=== PATIENT | male | born 1970 | race Caucasian/White ===

== ENCOUNTER → 2023-05-16 15:33 | Outpatient (CLI) | payer OTHER, SELFPAY ==
--- NOTE | 2023-05-16 | DI.US.S_ITS ---
PROCEDURE: US EXTREMITY NONVASC UPPER LT INDICATIONS: SOFT TISSUE MASS LEFT ARM TECHNIQUE: Real-time scanning was performed of the left acromioclavicular fossa , with image documentation. COMPARISON: [facility], , EXTREMITY NON-VASCULAR LTD, 01/29/2017, 16:26. FINDINGS: Targeted ultrasound of the left acromioclavicular fossa demonstrates a part cystic and solid mass without significant internal vascularity. This measures 3.0 x 2.8 x 2.2 cm, previously 1.5 x 1.5 x 1.1 cm. IMPRESSION: Interval growth of the part cystic and solid mass in the left acromioclavicular fossa. Slow interval growth favors a benign entity, but tissue sampling should be considered to exclude malignancy. Alternatively, MRI with contrast could be considered to evaluate for enhancement or other worrisome features. Dictated by: Nicholas Al M.D. on 05/16/2023 at 16:58 Approved by: Nicholas Al M.D. on 05/16/2023 at 17:00
== END ==
LOC: US 15:34
PROVIDERS: PCP Internal Medicine; Referring Provider Internal Medicine; Visit Provider Internal Medicine
DX: M25.822 Other specified joint disorders, left elbow (principal)
CPT/HCPCS: 76882

== ENCOUNTER → 2023-07-04 08:20 | Outpatient (CLI) | payer OTHER, SELFPAY ==
--- NOTE | 2023-07-04 08:21 | DI.MRI.S_ITS ---
PROCEDURE: MR ELBOW LT WO/W CON INDICATIONS: Localized swelling, mass and lump, left upper limb TECHNIQUE: Noncontrast coronal proton density fast spin echo and T2 fast spin echo with fat saturation, coronal T1 spin echo with fat saturation, axial and sagittal T1 spin echo and T2 fast spin echo with fat saturation through the elbow. Post-contrast coronal, axial, and sagittal T1 spin echo with fat saturation through the elbow. COMPARISON: None. FINDINGS: Image quality: Excellent. Lateral structures: The lateral ulnar collateral ligament and radial collateral ligament both appear thickened. The overlying common extensor tendon also appears thickened with intrasubstance T2 hyperintense signal at its lateral epicondylar insertion. Medial structures: The ulnar collateral ligament appears intact. The overlying common flexor tendon appears normal. The ulnar nerve appears normal in size and signal within the cubital tunnel. Anterior structures: There is a slightly lobulated and heterogeneously T1 hypointense and T2 hyperintense structure with well defined capsule in anterior medial elbow soft tissue closely associated with median neurovascular bundle in this area and measures up to 2.7 x 2.4 x 3 cm in size series 7, image 17 and series 9, image 21. Heterogeneous contrast enhancement throughout this lesion is noted. The biceps and brachialis tendons both appear intact as they insert onto the proximal radius and ulna, respectively. No bicipitoradial bursal fluid. The radial neurovascular bundle appears normal; no focal muscle atrophy to suggest nerve impingement. Posterior structures: The conjoint triceps tendon from the long and lateral heads appears intact. The medial head of the triceps tendon also appears normal, with direct muscle insertion onto the olecranon. No olecranon bursal fluid. Bone and cartilage: No suspicious osseous enhancement. No bone marrow contusions or fractures. No osteochondral injuries. IMPRESSION: 1. 2.7 x 2.4 x 3 cm enhancing oval mass in antral medial elbow soft tissue closely associated with median neurovascular bundle most likely represent schwannoma in this area suggest clinical correlation. 2. No other enhancing soft tissue mass or drainable fluid collection. 3. Suggestion of lateral epicondylitis as above. 4. No abnormal intraosseous enhancement. No fracture or dislocation. No suspicious bony lesion. Dictated by: Jose Guadalupe M.D. on 07/04/2023 at 14:13 Approved by: Jose Guadalupe M.D. on 07/04/2023 at 14:21
== END ==
LOC: MRI 08:21
PROVIDERS: PCP Internal Medicine; Referring Provider Physician Assistant; Visit Provider Physician Assistant
DX: R22.32 Localized swelling, mass and lump, left upper limb (principal)
CPT/HCPCS: 73223; A9579

== ENCOUNTER → 2025-01-21 10:55 | Outpatient (CLI) | payer OTHER, SELFPAY ==
--- NOTE | 2025-01-21 10:56 | DI.RAD.S_ITS ---
PROCEDURE: XR CHEST 2V INDICATIONS: uri x 10 days, FH+ for pneumonia TECHNIQUE: 2 views of the chest were acquired. COMPARISON: None. FINDINGS: Surgical changes and devices: None. Lungs and pleura: Lungs are clear. Small calcified granuloma projects over the right lung. No pleural effusions or pneumothorax. Mediastinum: Mediastinal contours are normal. Heart size is normal. Bones and chest wall: No suspicious bony abnormalities. Soft tissues appear unremarkable. IMPRESSION: No acute cardiopulmonary abnormality is seen. Approved by: Lito Jasso M.D. on 01/21/2025 at 11:10
== END ==
PROVIDERS: PCP Internal Medicine; Referring Provider Physician Assistant; Visit Provider Physician Assistant
DX: J06.9 Acute upper respiratory infection, unspecified (principal)
CPT/HCPCS: 71046

== ENCOUNTER → 2025-03-31 08:33 | Outpatient (CLI) | payer OTHER, SELFPAY ==
--- NOTE | 2025-03-31 08:34 | DI.RAD.S_ITS ---
PROCEDURE: XR KUB INDICATIONS: Kidney stone TECHNIQUE: One view of the abdomen acquired. COMPARISON: None. FINDINGS: Surgical changes and devices: None. Bowel: Bowel gas pattern is normal. Extensive bowel gas and fecal content obscures the bilateral kidneys. Soft tissues: No suspicious abdominal calcifications. Visualized solid organ contours appear normal in size. Bones: No suspicious bony lesions. IMPRESSION: Kidneys obscured by colonic contents. No calcified stones identified. Dictated by: Daniel Bangura M.D. on 03/31/2025 at 10:06 Approved by: Daniel Bangura M.D. on 03/31/2025 at 10:07
== END ==
PROVIDERS: PCP Internal Medicine; Referring Provider Urology; Visit Provider Urology
DX: N20.0 Calculus of kidney (principal)
CPT/HCPCS: 74018